=== PATIENT | female | born 1990 | race Caucasian/White ===

== ENCOUNTER 2017-12-23 20:06 | Emergency (ER) | payer MEDICAID ==
[~2017-12-23] VITALS: Ht 157.5 cm; Wt 129.0 kg
[~2017-12-23 20:06] MED LIST: CLA10T PO; CLIN300C11 PO; CYCL-1 PO; ESCI10TA; ESOM40CA30; HYDR-3965 PO; HYDR-569 PO; HYDR1TAB PO; MECL12.5 PO; MONT10TA21 PO
[2017-12-23 20:39] VITALS: BP 134/67
[2017-12-23 20:41] LABS: BASOPHILS # (AUTO) 0.1 X10'3 (0-0.2); BASOPHILS % (AUTO) 0.5 % (0-1); EOSINOPHILS # (AUTO) 0.1 X10'3 (0-0.9); EOSINOPHILS % (AUTO) 1.2 % (0-6); HEMATOCRIT 39.2 % (35.0-45.0); LYMPHOCYTES # (AUTO) 2.8 X10'3 (1.1-4.8); LYMPHOCYTES % (AUTO) 22.4 % (21-51); MEAN CORPUSCULAR HEMOGLOBIN 27.7 PG (27.0-31.0); MEAN CORPUSCULAR HGB CONC 33.3 % (33.0-36.5); MEAN CORPUSCULAR VOLUME 83.1 FL (78-98); MEAN PLATELET VOLUME 8.3 FL (7.4-10.4); MONOCYTES # (AUTO) 0.7 X10'3 (0-0.9); MONOCYTES % (AUTO) 5.4 % (2-12); NEUTROPHILS # (AUTO) 8.9 X10'3 (1.8-7.7); NEUTROPHILS % (AUTO) 70.5 % (42-75); PLATELET COUNT 273 X10'3 (140-440); RED BLOOD COUNT 4.72 X10'6 (4.20-5.60); RED CELL DISTRIBUTION WIDTH 15.4 % (11.5-14.5); WHITE BLOOD COUNT 12.6 X10'3 (4.5-11.0)
[2017-12-23] MEDS ORDERED: loperamide 2mg capsule PO ONE (20:50)
== END 2017-12-23 21:00 | disposition home or self-care (01) ==
LOC: ER 20:07
DX: R19.7 Diarrhea, unspecified (principal); K21.9 Gastro-esophageal reflux disease without esophagitis; G89.29 Other chronic pain; G43.909 Migraine, unspecified, not intractable, without status migrainosus; Z88.1 Allergy status to other antibiotic agents; Z91.040 Latex allergy status; Z90.89 Acquired absence of other organs; Z79.899 Other long term (current) drug therapy
CPT/HCPCS: 36415; 85025; 99283

== ENCOUNTER 2018-05-09 18:08 | Emergency (ER) | payer BC, MEDICAID ==
[~2018-05-09] VITALS: Ht 157.5 cm; Wt 140.0 kg
[~2018-05-09 18:08] MED LIST changes: +HYDR-4383 PO; -HYDR-569 PO
[2018-05-09 18:23] VITALS: BP 116/68
[2018-05-09] MEDS ORDERED: ketorolac tromethamine 15mg/ml inj. IM ONE (19:40)
[2018-05-09] MEDS ORDERED: orphenadrine citrate 60mg/2ml inj. IM ONE (19:40)
[2018-05-09] MEDS ORDERED: IBUP-1985 PO (19:47)
[2018-05-09] MEDS ORDERED: METH-360 PO (19:47)
[2018-05-09] MEDS ORDERED: diazepam 5mg tablet PO ONE (20:30)
[2018-05-09] MEDS ORDERED: oxyCODONE/APAP 10/325mg tablet PO ONE (20:30)
== END 2018-05-09 20:53 | disposition home or self-care (01) ==
LOC: ER 18:08
DX: M54.5 Low back pain (principal); G89.29 Other chronic pain; K21.9 Gastro-esophageal reflux disease without esophagitis; G43.909 Migraine, unspecified, not intractable, without status migrainosus; Z90.89 Acquired absence of other organs; Z88.1 Allergy status to other antibiotic agents; Z91.040 Latex allergy status; Z79.899 Other long term (current) drug therapy
CPT/HCPCS: 96372; 99283; J1885; J2360

== ENCOUNTER 2018-05-24 19:38 | Emergency (ER) | payer BC ==
[~2018-05-24] VITALS: Ht 157.5 cm; Wt 145.6 kg
[~2018-05-24 19:38] MED LIST changes: +IBUP-1985 PO; +METH-360 PO
[2018-05-24 21:25] LABS: URINE HCG NEGATIVE (NEG)
[2018-05-24] MEDS ORDERED: ketorolac trometh inj. 60 MG/2 ML VIAL IM ONE (21:30)
[2018-05-24] MEDS ORDERED: HYDROcodone/acetaminophen 5mg/325mg tablet PO ONE (21:30)
[2018-05-24] MEDS ORDERED: ondansetron 4mg rapidly disintigrating tab PO ONE (21:30)
[2018-05-24] MEDS ORDERED: acetaminophen 325mg tablet PO ONE (21:30)
[2018-05-24 22:16] LABS: CLARITY,URINE SLIGHTLY CLOUDY (Clear); COLOR,URINE YELLOW (Yellow); GLUCOSE, URINE NEGATIVE (Neg); KETONES,URINE TRACE mg/dl (Neg); LEUKOCYTE ESTERASE ,URINE SMALL (Neg); NITRITES, URINE NEGATIVE (Neg); OCCULT BLOOD,URINE MODERATE (Neg); PH,URINE 5.5 (4.8-8.0); PROTEIN,URINE TRACE mg/dl (Neg); UROBILINOGEN,URINE 0.2 E.U/dL (0.2-1.0)
[2018-05-24 22:19] VITALS: BP 122/77
[2018-05-24 22:50] LABS: UA COLLECTION TYPE CLN CATCH MIDSTREAM
[2018-05-24 22:52] LABS: BACTERIA,URINE 1+ /HPF (Neg); MUCUS STRANDS MODERATE /LPF (Neg); SQUAMOUS EPITHELIAL CELL,UR FEW /LPF (FEW); WBC CLUMPS,URINE FEW /HPF (NEGATIVE); WBC,URINE 50-100 /HPF (0-4)
[2018-05-24] MEDS ORDERED: CefTRIAXone 1000mg IM Kit (w/lidocaine diluent) IM ONE (23:00)
[2018-05-24] MEDS ORDERED: ONDA8TAB9 PO (23:03)
[2018-05-24] MEDS ORDERED: DOXY100C43 PO (23:03)
[2018-05-24] MEDS ORDERED: cyclobenzaprine 10mg tablet PO ONE (23:05)
[2018-05-24] MEDS ORDERED: DOXYCYCLINE 100MG CAPSULE PO ONE (23:05)
== END 2018-05-24 23:41 | disposition home or self-care (01) ==
LOC: ER 19:39
DX: N39.0 Urinary tract infection, site not specified (principal); G43.909 Migraine, unspecified, not intractable, without status migrainosus; K21.9 Gastro-esophageal reflux disease without esophagitis; G89.29 Other chronic pain; Z90.89 Acquired absence of other organs; Z88.1 Allergy status to other antibiotic agents; Z91.040 Latex allergy status; Z79.2 Long term (current) use of antibiotics; Z79.899 Other long term (current) drug therapy
CPT/HCPCS: 81001; 81025; 87077; 87088; 87186; 93005; 96372; 99284; J0696; J1885

== ENCOUNTER 2018-06-07 22:52 | Emergency (ER) | payer BC ==
[~2018-06-07] VITALS: Ht 157.5 cm; Wt 148.2 kg
[~2018-06-07 22:52] MED LIST changes: +ONDA8TAB9 PO
[2018-06-08] MEDS ORDERED: dexamethasone 4mg tablet PO ONE (02:55)
[2018-06-08] MEDS ORDERED: ALBU8HFA PO (02:56)
[2018-06-08] MEDS ORDERED: DOXY100C43 PO (02:56)
[2018-06-08] MEDS ORDERED: PRED20TA PO (02:56)
[2018-06-08] MEDS ORDERED: CefTRIAXone 250MG inj IM ONE (03:10)
[2018-06-08] MEDS ORDERED: CefTRIAXone 1000mg IM Kit (w/lidocaine diluent) IM ONE (03:10)
[2018-06-08 03:29] VITALS: BP 136/86
== END 2018-06-08 03:37 | disposition home or self-care (01) ==
LOC: ER 22:53
DX: J22 Unspecified acute lower respiratory infection (principal); J20.9 Acute bronchitis, unspecified; J18.1 Lobar pneumonia, unspecified organism; K21.9 Gastro-esophageal reflux disease without esophagitis; G89.29 Other chronic pain; E66.01 Morbid (severe) obesity due to excess calories; Z98.890 Other specified postprocedural states; Z88.1 Allergy status to other antibiotic agents; Z91.040 Latex allergy status; Z79.2 Long term (current) use of antibiotics; Z79.899 Other long term (current) drug therapy
CPT/HCPCS: 71046; 96372; 99283; J0696; J8540

== ENCOUNTER 2018-07-16 15:14 | Emergency (ER) | payer BC, MEDICAID ==
[~2018-07-16] VITALS: Ht 157.5 cm; Wt 148.8 kg
[2018-07-16 15:19] VITALS: BP 147/87
[2018-07-16] MEDS ORDERED: mupirocin 2% ointment 22GM TP ONE (16:10)
[2018-07-16] MEDS ORDERED: mupirocin 2% nasal ointment 1gm UD NS ONE (16:10)
== END 2018-07-16 17:07 | disposition home or self-care (01) ==
LOC: ER 15:14
DX: L60.0 Ingrowing nail (principal); K21.9 Gastro-esophageal reflux disease without esophagitis; G89.29 Other chronic pain; Z98.890 Other specified postprocedural states; Z88.1 Allergy status to other antibiotic agents; Z91.040 Latex allergy status; Z79.2 Long term (current) use of antibiotics; Z79.899 Other long term (current) drug therapy
CPT/HCPCS: 11750; 99284

== ENCOUNTER 2018-10-15 16:08 | Emergency (ER) | payer BC, MEDICAID ==
[~2018-10-15] VITALS: Ht 160 cm; Wt 145.0 kg
[~2018-10-15 16:08] MED LIST changes: -ESOM40CA30; +ESOM40CA49
[2018-10-15 16:59] VITALS: BP 117/85
[2018-10-15] MEDS ORDERED: ONDA4TAB6 PO (16:59)
[2018-10-15] MEDS ORDERED: CARB15DR91 EACH EAR (16:59)
== END 2018-10-15 17:14 | disposition home or self-care (01) ==
LOC: ER 16:09
DX: H61.21 Impacted cerumen, right ear (principal); G43.909 Migraine, unspecified, not intractable, without status migrainosus; K21.9 Gastro-esophageal reflux disease without esophagitis; G89.29 Other chronic pain; Z98.890 Other specified postprocedural states; Z91.040 Latex allergy status; Z88.8 Allergy status to other drugs, medicaments and biological substances; Z79.899 Other long term (current) drug therapy
CPT/HCPCS: 69209; 99283

== ENCOUNTER 2019-01-27 15:08 | Emergency (ER) | payer MEDICAID ==
[~2019-01-27] VITALS: Ht 157.5 cm; Wt 146.0 kg
[~2019-01-27 15:08] MED LIST changes: +CARB15DR91 EACH EAR; +ONDA4TAB6 PO
[2019-01-27] MEDS ORDERED: dexamethasone sod phosphate 10mg/ml inj IM STA (15:59)
[2019-01-27] MEDS ORDERED: SUMAtriptan succ. 6 MG/0.5ml vial SQ ONE (16:00)
[2019-01-27] MEDS ORDERED: MECL-111 PO (17:06)
[2019-01-27 17:25] VITALS: BP 122/71
== END 2019-01-27 17:31 | disposition home or self-care (01) ==
LOC: ER 15:09
DX: G43.909 Migraine, unspecified, not intractable, without status migrainosus (principal); R42 Dizziness and giddiness; K21.9 Gastro-esophageal reflux disease without esophagitis; G89.29 Other chronic pain; F32.9 Major depressive disorder, single episode, unspecified; Z98.890 Other specified postprocedural states; Z88.1 Allergy status to other antibiotic agents; Z91.040 Latex allergy status; Z79.2 Long term (current) use of antibiotics; Z79.899 Other long term (current) drug therapy
CPT/HCPCS: 96372; 99283; J1100; J3030

== ENCOUNTER 2019-11-29 22:14 | Emergency (ER) | payer MEDICAID, OTHER ==
[~2019-11-29] VITALS: Ht 157.5 cm; Wt 161.3 kg
[~2019-11-29 22:14] MED LIST changes: +MECL-159 PO
[2019-11-29 22:28] VITALS: BP 148/96
[2019-11-29] MEDS ORDERED: orphenadrine citrate 60mg/2ml inj. IM ONE (23:45)
[2019-11-29] MEDS ORDERED: ketorolac tromethamine 15mg/ml inj. IM ONE (23:45)
[2019-11-29] MEDS ORDERED: ORPH100T2 PO (23:51)
[2019-11-29] MEDS ORDERED: IBUP-1984 PO (23:51)
== END 2019-11-30 00:17 | disposition home or self-care (01) ==
LOC: ER 22:15
DX: G89.29 Other chronic pain (principal); M54.5 Low back pain; G43.909 Migraine, unspecified, not intractable, without status migrainosus; K21.9 Gastro-esophageal reflux disease without esophagitis; F32.9 Major depressive disorder, single episode, unspecified; Z90.89 Acquired absence of other organs; Z88.1 Allergy status to other antibiotic agents; Z91.040 Latex allergy status; Z79.2 Long term (current) use of antibiotics; Z79.899 Other long term (current) drug therapy
CPT/HCPCS: 96372; 99284; J1885; J2360

== ENCOUNTER 2020-04-19 18:14 | Emergency (ER) | payer OTHER, SELFPAY ==
[~2020-04-19] VITALS: Ht 157.5 cm; Wt 136.4 kg
[~2020-04-19 18:14] MED LIST changes: +ORPH100T2 PO
[2020-04-19] MEDS ORDERED: diphenhydrAMINE 50 mg/ml inj IV ONE (20:45)
[2020-04-19] MEDS ORDERED: proCHLORperazine 10 MG/2 ml inj IM ONE (20:45)
[2020-04-19] MEDS ORDERED: diphenhydrAMINE 50 mg/ml inj IM ONE (21:00)
[2020-04-19 21:23] VITALS: BP 124/85
--- NOTE | 2020-04-19 21:32 | NUR ---
PT IS DC READY ONCE SHE REPORTS SOME RELIEF FROM THE MEDS GIVEN FOR HER GREEN PER Elaina SMILEY NP. PT UPDATED OF THIS.
== END 2020-04-19 21:27 | disposition home or self-care (01) ==
LOC: ER 18:15
DX: R06.02 Shortness of breath (principal); G43.909 Migraine, unspecified, not intractable, without status migrainosus; R42 Dizziness and giddiness; K21.9 Gastro-esophageal reflux disease without esophagitis; G89.29 Other chronic pain; M54.9 Dorsalgia, unspecified; F32.9 Major depressive disorder, single episode, unspecified; Z87.81 Personal history of (healed) traumatic fracture; Z98.890 Other specified postprocedural states; Z88.1 Allergy status to other antibiotic agents; Z91.040 Latex allergy status; Z79.899 Other long term (current) drug therapy; Z20.828 Contact with and (suspected) exposure to other viral communicable diseases
CPT/HCPCS: 96372; 99284; J0780; J1200; 36415

== ENCOUNTER 2021-04-09 22:22 | Emergency (ER) | payer OTHER ==
[~2021-04-09] VITALS: Ht 157.5 cm; Wt 154.6 kg
[~2021-04-09 22:22] MED LIST changes: +CLIN-156 PO; -CLIN300C11 PO
[2021-04-09 22:32] VITALS: BP 169/89
[2021-04-09] MEDS ORDERED: amox tr/potassium clavulanate 875/125mg TAB PO ONE (22:40)
[2021-04-09] MEDS ORDERED: ketorolac tromethamine 15mg/ml inj. IM ONE (22:55)
[2021-04-09] MEDS ORDERED: AMOX-117 PO (23:25)
[2021-04-09] MEDS ORDERED: PRED20TA PO (23:48)
[2021-04-09] MEDS ORDERED: predniSONE 20 mg tablet PO ONE (23:50)
== END 2021-04-09 23:58 | disposition home or self-care (01) ==
LOC: ER 22:23
DX: H66.91 Otitis media, unspecified, right ear (principal); J06.9 Acute upper respiratory infection, unspecified; K21.9 Gastro-esophageal reflux disease without esophagitis; G43.909 Migraine, unspecified, not intractable, without status migrainosus; G89.29 Other chronic pain; M54.9 Dorsalgia, unspecified; F32.9 Major depressive disorder, single episode, unspecified; Z91.040 Latex allergy status; Z88.1 Allergy status to other antibiotic agents; Z79.899 Other long term (current) drug therapy; Z88.8 Allergy status to other drugs, medicaments and biological substances; Z20.822 Contact with and (suspected) exposure to COVID-19
CPT/HCPCS: 87635; 96372; 99283; C9803; J1885; J7512

== ENCOUNTER 2022-02-03 16:21 | Emergency (ER) | payer SELFPAY ==
[~2022-02-03] VITALS: Ht 160 cm; Wt 159.0 kg
[~2022-02-03 16:21] MED LIST changes: -CLIN-156 PO; +CLIN-197 PO
[2022-02-03 16:36] VITALS: BP 150/91
[2022-02-03] MEDS ORDERED: diphenhydrAMINE 50 mg/ml inj IV ONE (17:20)
[2022-02-03] MEDS ORDERED: normal saline 1000ml 1,000 ML IV ONE (17:20)
[2022-02-03] MEDS ORDERED: proCHLORperazine 10 MG/2 ml inj IV ONE (17:20)
[2022-02-03] MEDS ORDERED: SUMAtriptan 25 MG tablet PO ONE (17:20)
[2022-02-03] MEDS ORDERED: SUMA100T16 PO (19:06)
[2022-02-03] MEDS ORDERED: ONDA4TAB12 PO (19:06)
== END 2022-02-03 19:39 | disposition home or self-care (01) ==
LOC: ER 16:21
DX: G43.909 Migraine, unspecified, not intractable, without status migrainosus (principal); G89.29 Other chronic pain; M54.9 Dorsalgia, unspecified; K21.9 Gastro-esophageal reflux disease without esophagitis; F32.A Depression, unspecified; Z91.040 Latex allergy status; Z88.1 Allergy status to other antibiotic agents; Z88.8 Allergy status to other drugs, medicaments and biological substances; Z79.899 Other long term (current) drug therapy; Z79.1 Long term (current) use of non-steroidal anti-inflammatories (NSAID); Z79.2 Long term (current) use of antibiotics
CPT/HCPCS: 96361; 96374; 96375; 99284; J0780; J1200; J7030

== ENCOUNTER 2023-07-29 14:45 | Emergency (ER) | payer SELFPAY ==
[~2023-07-29] VITALS: Ht 157.5 cm; Wt 140.9 kg
[~2023-07-29 14:45] MED LIST changes: -MECL-159 PO; +MECL-302 PO; +MONT-48 PO; -MONT10TA21 PO; +ONDA4TAB12 PO; -ORPH100T2 PO; +ORPH100T4 PO; +SUMA100T16 PO
[2023-07-29 15:15] VITALS: BP 131/93; PULSE 118; RESP 20; TEMP 97.4; O2SAT 98
[2023-07-29] MEDS ORDERED: CIPR7.5D7 OT (15:37)
[2023-07-29] MEDS ORDERED: AMOX-117 PO (15:37)
== END 2023-07-29 15:58 | disposition home or self-care (01) ==
LOC: ER 14:46
DX: H66.91 Otitis media, unspecified, right ear (principal); K21.9 Gastro-esophageal reflux disease without esophagitis; G43.909 Migraine, unspecified, not intractable, without status migrainosus; G89.29 Other chronic pain; M54.9 Dorsalgia, unspecified; F32.A Depression, unspecified; Z88.8 Allergy status to other drugs, medicaments and biological substances; Z88.1 Allergy status to other antibiotic agents; Z91.040 Latex allergy status; Z79.899 Other long term (current) drug therapy
CPT/HCPCS: 99283

== ENCOUNTER 2023-10-03 09:51 | Emergency (ER) | payer OTHER ==
[~2023-10-03] VITALS: Ht 157.5 cm; Wt 137.6 kg
[~2023-10-03 09:51] MED LIST changes: +CIPR7.5D7 OT
[2023-10-03 10:16] VITALS: BP 123/89; PULSE 67; RESP 16; TEMP 97.6; O2SAT 99
[2023-10-03] MEDS: dexamethasone sod phosphate 10mg/ml inj IM STA (11:22)
[2023-10-03] MEDS: cyclobenzaprine 10mg tablet PO ONE (11:22)
[2023-10-03] MEDS ORDERED: HYDR-3965 PO (11:42)
[2023-10-03] MEDS ORDERED: METH-798 PO (11:42)
[2023-10-03] MEDS ORDERED: PRED20TA PO (11:42)
== END 2023-10-03 12:20 | disposition home or self-care (01) ==
LOC: ER 09:51
DX: M54.50 Low back pain, unspecified (principal); M62.830 Muscle spasm of back; G43.909 Migraine, unspecified, not intractable, without status migrainosus; K21.9 Gastro-esophageal reflux disease without esophagitis; Z91.09 Other allergy status, other than to drugs and biological substances; Z88.1 Allergy status to other antibiotic agents; Z91.040 Latex allergy status; Z79.899 Other long term (current) drug therapy; Z79.2 Long term (current) use of antibiotics; Z79.1 Long term (current) use of non-steroidal anti-inflammatories (NSAID)
CPT/HCPCS: 96372; 99283; J1100

== ENCOUNTER 2024-07-27 14:42 | Emergency (ER) | payer OTHER ==
[~2024-07-27] VITALS: Ht 157.5 cm; Wt 134.0 kg
[~2024-07-27 14:42] MED LIST changes: +METH-798 PO; +ONDA-243 PO; -ONDA4TAB12 PO
[2024-07-27 14:44] VITALS: BP 150/88; PULSE 108; RESP 16; O2SAT 100
[2024-07-27] MEDS ORDERED: BENZ-38 PO (15:41)
[2024-07-27] MEDS ORDERED: PRED10TA23 PO (15:41)
[2024-07-27 15:59] VITALS: TEMP 98.1
== END 2024-07-27 16:04 | disposition home or self-care (01) ==
LOC: ER 14:43
DX: J02.9 Acute pharyngitis, unspecified (principal); G89.29 Other chronic pain; K21.9 Gastro-esophageal reflux disease without esophagitis; Z91.09 Other allergy status, other than to drugs and biological substances; Z88.1 Allergy status to other antibiotic agents; Z91.040 Latex allergy status; Z79.899 Other long term (current) drug therapy; Z90.89 Acquired absence of other organs
CPT/HCPCS: 99283

== ENCOUNTER 2024-11-27 23:19 | Emergency (ER) | payer SELFPAY ==
[~2024-11-27] VITALS: Ht 160 cm; Wt 137.0 kg
[~2024-11-27 23:19] MED LIST changes: +BENZ-38 PO; +PRED10TA23 PO
[2024-11-27] MEDS: ondansetron 4mg rapidly disintigrating tab PO ONE (23:37)
[2024-11-27] MEDS: HYDROcodone/acetaminophen 5mg/325mg tablet PO ONE (23:37)
[2024-11-28 00:02] LABS: BASOPHILS # (AUTO) 0.1 X10'3 (0-0.2); BASOPHILS % (AUTO) 0.5 % (0-1); EOSINOPHILS # (AUTO) 0.2 X10'3 (0-0.9); EOSINOPHILS % (AUTO) 1.6 % (0-6); HEMATOCRIT 44.4 % (35.0-45.0); HEMOGLOBIN 15.3 g/dl (12.0-16.0); LYMPHOCYTES # (AUTO) 2.8 X10'3 (1.1-4.8); LYMPHOCYTES % (AUTO) 21.7 % (21-51); MEAN CORPUSCULAR HEMOGLOBIN 30.6 PG (27.0-31.0); MEAN CORPUSCULAR HGB CONC 34.5 g/dL (33.0-36.5); MEAN CORPUSCULAR VOLUME 88.6 FL (78-98); MEAN PLATELET VOLUME 8.2 FL (7.4-10.4); MONOCYTES # (AUTO) 0.9 X10'3 (0-0.9); NEUTROPHILS # (AUTO) 8.8 X10'3 (1.8-7.7); NEUTROPHILS % (AUTO) 69.2 % (42-75); PLATELET COUNT 234 X10'3 (140-440); RED BLOOD COUNT 5.01 X10'6 (4.20-5.60); WHITE BLOOD COUNT 12.7 X10'3 (4.5-11.0)
[2024-11-28 00:14] LABS: ALBUMIN 4.2 G/DL (3.4-5.0); ALBUMIN/GLOBULIN RATIO 1.2 (1.1-1.5); ANION GAP 8 (8-16); ASPARTATE AMINO TRANSFERASE 27 U/L (10-37); BILIRUBIN,TOTAL 0.4 MG/DL (0.1-1.0); BLOOD UREA NITROGEN 24 MG/DL (7-18); BUN/CREATININE RATIO 15.2 (10.0-20.0); CALCIUM 9.3 MG/DL (8.5-10.1); CHLORIDE 106 MMOL/L (99-107); CREATININE 1.58 MG/DL (0.40-0.90); GLUCOSE 79 MG/DL (70-104); POTASSIUM 4.6 MMOL/L (3.5-5.1); SODIUM 140 MMOL/L (135-145); TOTAL PROTEIN 7.7 G/DL (6.4-8.2); eCRCL 42 ML/MIN; eGFR 38 ML/MIN
[2024-11-28 00:15] LABS: ALANINE AMINOTRANSFERASE 24 U/L (12-78); ALKALINE PHOSPHATASE 83 IU/L (46-116); LIPASE 62 U/L (16-77)
[2024-11-28 00:59] LABS: BILIRUBIN,URINE SMALL (Neg); CLARITY,URINE SLIGHTLY CLOUDY (Clear); COLOR,URINE YELLOW (Yellow); GLUCOSE, URINE NEGATIVE (Neg); KETONES,URINE TRACE mg/dl (Neg); LEUKOCYTE ESTERASE ,URINE NEGATIVE (Neg); NITRITES, URINE NEGATIVE (Neg); OCCULT BLOOD,URINE MODERATE (Neg); PH,URINE 5.5 (4.8-8.0); PROTEIN,URINE TRACE mg/dl (Neg); UROBILINOGEN,URINE 0.2 E.U/dL (0.2-1.0)
[2024-11-28 01:00] LABS: UA COLLECTION TYPE CLN CATCH MIDSTREAM; URINE HCG NEGATIVE (NEG)
[2024-11-28 01:06] LABS: BACTERIA,URINE FEW /HPF (Neg); MUCUS STRANDS FEW /LPF (Neg); SQUAMOUS EPITHELIAL CELL,UR FEW /LPF (FEW); WBC,URINE 0-4 /HPF (0-4)
--- NOTE | 2024-11-28 02:29 | Physician Documentation ---
History of Present Illness ~ Chief Complaint: Abdominal Pain Stated Complaint: ABD PAIN Time Seen by MD: 02:18 Primary Medical Doctor: Keyon Melara [facility] Mode of Arrival: POV HPI Patient presents to the emergency room for evaluation of nausea vomiting abdominal pain. Onset of symptoms yesterday. No sick contacts. No diarrhea. Medication Reconciliation Allergies: Coded Allergies: adhesive tape (Verified Allergy, Unknown, 10/03/23) ciprofloxacin (Verified Allergy, Unknown, 10/03/23) latex (Verified Allergy, Unknown, 10/03/23) Uncoded Allergies: BEE (Allergy, Unknown, 11/27/24) Scheduled Benzonatate* (Benzonatate*), 1 CAP PO Q8H Carbamide Peroxide (Debrox), 5 DROP EACH EAR BID Ciprofloxacin HCl/Dexameth (Ciproflox-Dexameth Otic Susp), 2 DROP OT BID Clindamycin HCl (Clindamycin HCl), 1 CAP PO QID Hydrocodone/Acetaminophen (Vicodin 5-500 Tablet), 1 TAB PO Q4H, (Reported) Ibuprofen (Ibuprofen), 1 TAB PO Q8H Loratadine* (Claritin*), 10 MG PO DAILY, (Reported) Meclizine HCl (Meclizine HCl), 1 TAB PO TID PRN Meclizine Hcl* (Antivert*), 25 MG PO Q6H Methocarbamol (Robaxin-750), 1 TAB PO Q12H Methocarbamol (Methocarbamol), 1 TAB PO Q8H Montelukast Sodium (Singulair), 10 MG PO DAILY, (Reported) Ondansetron Hcl (Zofran), 1 TAB PO Q6H Orphenadrine Citrate (Norflex), 1 TAB PO Q12H PRN Prednisone (Prednisone), 1 TAB PO BID Sumatriptan Succinate (Sumatriptan Succinate), 1 TAB PO UD Scheduled PRN Cyclobenzaprine* (Cyclobenzaprine*), 1 TABLET PO Q8H PRN for muscle spasms Hydrocodone Bit/Acetaminophen 5/325 MG ([place] 5/325 MG), 1 TAB PO Q4H PRN for moderate or severe pain Hydrocodone/Acetaminophen ([place] 5-325 Tablet), 1 TABLET PO Q4H PRN for pain Hydrocodone/Acetaminophen ([place] 5-325 Tablet), 1-2 TABLET PO Q4H PRN for pain ONDANSETRON ODT 4mg tablet (Ondansetron Odt), 1 TABLET PO Q6H PRN for nausea/vomiting Ondansetron (Zofran Odt), 8 MG PO QID PRN for nausea/vomiting Miscellaneous Medications Escitalopram Oxalate (Lexapro), (Reported) Esomeprazole Magnesium (Nexium), (Reported) Past Medical History Past Medical History: Migraine, Vertigo, GERD, Chronic Back Pain, Extremity Fracture, Depression Past Surgical History: tonsillectomy Alcohol Use: None Drug Use: none Lives with: Family Lives In: Home Occupation: employed Review of Systems ROS All review of systems negative except as per HPI Physical Exam Vital Signs: Temperature: 97.8, Source: Temporal, Heart Rate: 74, Respiratory Rate: 16, BP: 134/50, Pulse Oximetry: 98, Weight: 137.000 Oxygen Flow Rate: 0 Physical Exam General: Patient is awake, alert, oriented x4 in no acute distress and well appearing.~ Head: Normocephalic and atraumatic. Eyes: Conjunctival normal. EOMI. PERRL. ENT: Mucous membranes moist. Neck: Supple, trachea is midline. Chest: Clear to auscultation bilaterally without rales, rhonchi, or wheezes. There is no accessory muscle use or retractions. Cardiac: RRR without murmurs, gallops, or rubs. Abd: Soft, nondistended, mild epigastric tenderness to palpation without peritonitis Progress Results/Orders Results/Orders Orders - RASHI CARMONA MD Straight Cath For Urine Sample (11/27/24 23:21) Ultrasound Of Abdomen (11/28/24 02:32) Completed Orders - RASHI CARMONA MD Hcg, Ur Ql (11/27/24 23:21) Cbc/Diff (11/27/24 23:21) Lipase (11/27/24 23:21) CMP (11/27/24 23:21) Ondansetron Disint. Tablet (Zofran Odt T (11/27/24 23:30) Hydrocodone/Apap 5/325mg Tab ([place] /32 (11/27/24 23:30) Ua W/Microscopic, Cult If Ind (11/27/24 23:55) Prochlorperazine Tablet (Compazine Table (11/28/24 02:35) Dicyclomine Capsule (Bentyl Capsule) (11/28/24 02:35) Medications Received in ER Medications (Trade) Dose Ordered Sig/Gabriela Route PRN Reason Start Time Stop Time Status Last Admin Dose Admin (Zofran ODT tablet) 8 mg ONCE ONCE PO 11/27/24 23:30 11/27/24 23:31 DC 11/27/24 23:37 8 MG ([place] 5/325mg tablet) 1 tab ONCE ONCE PO 11/27/24 23:30 11/27/24 23:31 DC 11/27/24 23:37 1 TAB Vital Signs 11/27/24 11/27/24 11/28/24 11/28/24 23:23 23:37 01:06 01:09 Temp 97.8 Pulse 87 74 Resp 16 16 16 16 B/P (MAP) 144/80 134/50 (78) Pulse Ox 100 98 O2 Flow Rate 0 11/28/24 02:44 Pulse 80 Resp 16 B/P (MAP) 119/62 (81) Pulse Ox 98 Laboratory Tests Test 11/27/24 23:51 11/27/24 23:55 White Blood Count 12.7 H Red Blood Count 5.01 Hemoglobin 15.3 Hematocrit 44.4 Mean Corpuscular Volume 88.6 Mean Corpuscular Hemoglobin 30.6 Mean Corpuscular Hemoglobin Concent 34.5 Red Cell Distribution Width 13.0 Platelet Count 234 Mean Platelet Volume 8.2 Neutrophils (%) (Auto) 69.2 Lymphocytes (%) (Auto) 21.7 Monocytes (%) (Auto) 7.0 Eosinophils (%) (Auto) 1.6 Basophils (%) (Auto) 0.5 Neutrophils # (Auto) 8.8 H Lymphocytes # (Auto) 2.8 Monocytes # (Auto) 0.9 Eosinophils # (Auto) 0.2 Basophils # (Auto) 0.1 CBC Comment Sodium Level 140 Potassium Level 4.6 Chloride Level 106 Carbon Dioxide Level 26.0 Anion Gap 8 Blood Urea Nitrogen 24 H Creatinine 1.58 H Estimated GFR/1.73 m2 38 BUN/Creatinine Ratio 15.2 Glucose Level 79 Calcium Level 9.3 Total Bilirubin 0.4 Aspartate Amino Transf (AST/SGOT) 27 Alanine Aminotransferase (ALT/SGPT) 24 Alkaline Phosphatase 83 Total Protein 7.7 Albumin 4.2 Globulin 3.5 Albumin/Globulin Ratio 1.2 Lipase 62 Chemistry Comments Urine Specimen Description Cln catch midstream Urine Color Yellow Urine Clarity Slightly cloudy Urine pH 5.5 Urine Specific [place] >=1.030 Urine Protein Trace Urine Glucose (UA) Negative Urine Ketones Trace H Urine Occult Blood Moderate H Urine Nitrite Negative Urine Bilirubin Small Urine Urobilinogen 0.2 Urine Leukocyte Esterase Negative Urine RBC 10-20 Urine WBC 0-4 Urine Squamous Epithelial Cells Few Urine Bacteria Few Urine Mucus Few Urine Culture Indicated Not ind Volume Urine Centrifuged 10 ml Urine HCG, Qualitative Negative Urine Comment Medical Decision Making Findings Patient presents to the emergency room for evaluation of vomiting abdominal pain that has per HPI. Differentials include but are not limited to cholecystitis gastritis pancreatitis viral syndrome. That has concern for significant metabolic derangements giving her vomiting therefore labs ordered which did show mild leukocytosis which I believe is stress related however I could not rule out cholecystitis therefore ultrasound was ordered however patient is requesting to leave. She does report that he had nausea is improved. Departure Disposition: HOME / SELF CARE / HOMELESS Impression: Primary Impression: Acute gastritis Condition: Improved Discharge Instructions: Gastritis, Adult Referrals: NO PRIMARY CARE PROVIDER (PCP) Prescriptions Dicyclomine Hcl* (Bentyl*) 10 Mg Capsule 2 CAP PO Q6H PRN for ABDOMINAL PAIN, #20 CAP Prov: RASHI CARMONA MD 11/28/24 Famotidine (Pepcid) 20 Mg Tablet 1 TAB PO Q12H, #20 TAB 0 Refills Prov: RASHI CARMONA MD 11/28/24 Ondansetron 8mg ODT (Ondansetron Odt) 8 Mg Tab.rapdis 1 TAB PO Q6H for nausea/vomiting for 3 Days, #12 TAB 0 Refills Prov: RASHI CARMONA MD 11/28/24 Signature Scribe Signature: No scribe Attestation: The note accurately reflects work and decisions made by me.Rashi Carmona MD 11/28/24 02:57 RASHI CARMONA MD Nov 28, 2024 02:29
[2024-11-28] MEDS: dicyclomine 10 MG capsule PO ONE (02:55)
[2024-11-28] MEDS: proCHLORperazine 10mg tablet PO ONE (02:55)
[2024-11-28] MEDS ORDERED: FAMO-129 PO (02:56)
[2024-11-28] MEDS ORDERED: DICY10CA88 PO (02:56)
[2024-11-28] MEDS ORDERED: ONDA-245 PO (02:56)
[2024-11-28 03:18] VITALS: BP 124/64; PULSE 78; RESP 16; TEMP 98.4; O2SAT 98
--- NOTE | 2024-11-28 04:38 | RADIOLOGY REPORT ---
INDICATION: epigastric pain TECHNIQUE: Multiple real-time sonographic images of the abdomen were obtained. COMPARISON: None FINDINGS: The liver is increased in echogenicity. The liver measures 12.8 cm. No intrahepatic biliar y ductal dilatation is noted. The gallbladder wall measures 0.2 cm and is unremarkable. No gallstones or sludge is seen. The com mon duct measures 0.6 cm and is unremarkable. No pericholecystic fluid is noted. The right kidney measures 10.4 cm. No hydronephrosis. The pancreas is not well visualized due to obscuration from bowel gas. The visualized portions of the IVC and aorta are grossly unremarkable. IMPRESSION: 1. Hepatic steatosis. 2. Gallstones or acute cholecystitis.
== END 2024-11-28 03:22 | disposition home or self-care (01) ==
LOC: ER 23:20
DX: K29.00 Acute gastritis without bleeding (principal); G43.909 Migraine, unspecified, not intractable, without status migrainosus; K21.9 Gastro-esophageal reflux disease without esophagitis; F32.A Depression, unspecified; Z88.1 Allergy status to other antibiotic agents; Z91.048 Other nonmedicinal substance allergy status; Z79.899 Other long term (current) drug therapy
CPT/HCPCS: 36415; 76700; 80053; 81001; 81025; 83690; 85025; 99284; Q0164